=== PATIENT | male | born 1970 | race Caucasian/White ===

== ENCOUNTER 2018-08-18 15:49 | Emergency (ER) | payer OTHER ==
[2018-08-18 16:22] VITALS: BP 145/92; PULSE 89; TEMP 98.4; BMI 18.8
[2018-08-18] MEDS ORDERED: DIPHTH,PERTUSS(ACELL),TET 0.5 ML DISP.SYRIN IM ONE ×2 (16:56→17:19)
--- NOTE | 2018-08-18 16:57 | PDOC ---
History of Present Illness - General Chief Complaint: Injury Stated Complaint: JOB INJURY Time Seen by Provider: 08/18/18 16:20 History Source: Patient Exam Limitations: No Limitations Past History - Travel Traveled outside of the country in the last 30 days: No Close contact w/someone who was outside of country & ill: No - Past Medical History Allergies/Adverse Reactions: Allergies Allergy/AdvReac Type Severity Reaction Status Date / Time No Known Allergies Allergy Verified 08/18/18 17:18 Home Medications: Ambulatory Orders Amox-Tr/K Cl [Augmentin - 875Mg Tablet] 1 tab PO BID #20 tablet 08/18/18 Chlorhexidine [Chlorhexidine Flavor] 15 ml MC BID #1 bottle 08/18/18 Ibuprofen 600 mg PO Q6H #30 tablet 08/18/18 COPD: No - Surgical History Cholecystectomy: No - Immunization History Immunization Up to Date: No - Suicide/Smoking/Psychosocial Hx Smoking History: Current every day smoker Have you smoked in the past 12 months: Yes Information on smoking cessation initiated: No Hx Alcohol Use: No Drug/Substance Use Hx: No Review of Systems - Review of Systems Able to Perform ROS?: Yes Comments:: 08/18/18 23:43 CONSTITUTIONAL: Absent: fever, chills, diaphoresis, generalized weakness, malaise, loss of appetite HEENT: Absent: rhinorrhea, nasal congestion, throat pain, throat swelling, difficulty swallowing, mouth swelling, ear pain, eye pain, visual Changes CARDIOVASCULAR: Absent: chest pain, loss of consciousness, palpitations, irregular heart rate, peripheral edema RESPIRATORY: Absent: cough, shortness of breath, dyspnea with exertion, orthopnea, wheezing, stridor, hemoptysis MUSCULOSKELETAL: Present: jaw pain Absent: myalgia, arthralgia, joint swelling SKIN: Present: cut to tongue Absent: rash, itching, pallor NEUROLOGIC: Absent: headache, focal weakness or paresthesias, dizziness, unsteady gait, seizure, mental status changes, bladder or bowel incontinence Is the patient limited Tongan proficient: No *Physical Exam - Vital Signs Last Vital Signs Temp Pulse Resp BP Pulse Ox 98.4 F 89 18 145/92 98 08/18/18 16:19 08/18/18 16:19 08/18/18 16:19 08/18/18 16:19 08/18/18 16:19 - Physical Exam Comments: 08/18/18 23:44 GENERAL: Well developed, well nourished. Awake and alert. No acute distress. HEENT: Normocephalic, atraumatic. PERRLA, EOMI. No conjunctival pallor. Sclera are non- icteric. Moist mucous membranes. Oropharynx is clear. Front R tooth is cracked. NECK: Supple. Full ROM. No JVD. Carotid pulses 2+ and symmetric, without bruits. No thyromegaly. No lymphadenopathy. MUSCULOSKELETAL TTP of the R mandilble. Normal range of motion at all joints. No bony deformities or tenderness. No CVA tenderness. EXTREMITIES: No cyanosis. No clubbing. No edema. No calf tenderness. SKIN: 1.5cm lineral laceration to the top of the tongue with through and through laceration to the R lateral tongue measuring approcimately 1cm. Bleeding controlled. Warm and dry. Normal capillary refill. No rashes. No jaundice. NEUROLOGICAL: Alert, awake, appropriate. Cranial nerves 2-12 intact. No deficits to light touch and temperature in face, upper extremities and lower extremities. No motor deficits in the in face, upper extremities and lower extremities. Normoreflexic in the upper and lower extremities. Normal speech. Toes are down- going bilaterally. Gait is normal without ataxia. PSYCHIATRIC: Cooperative. Good eye contact. Appropriate mood and affect. Medical Decision Making - Medical Decision Making 08/18/18 23:47 The patient is a 47-year-old male no past medical history who presents to the ER for evaluation of facial pain and a tongue laceration status post work injury. Patient works for [employer]. He states he was changing a tire when 1 of the pieces of equipment sprang up and hit him in the chin. He states he has pain to the right side of his jaw. He also states that he has cuts to his tongue. Denies loss of consciousness, dizziness and lightheadedness. A/P: Jaw pain, laceration to tongue. On exam patient with a through and through laceration to the top of his tongue to the right lateral portion of the tongue both cuts measuring greater than a centimeter. Verbal consent obtained to repair tongue lacerations. 5 mL's of lidocaine were injected into the tongue at the site of the lacerations. Lacerations were thoroughly rinsed out with normal saline under high pressure, approximately 50 ML's. One subcutaneous stitch placed into the right lateral tongue 2 subcutaneous stitches placed into the top of the tongue. Wounds were approximated, not closed completely. Tetanus updated. Patient placed on Augmentin and given antibiotic mouthwash. Patient to return in 2 days for wound check. Refer to dentistry to evaluate the cracked front tooth. CT of the jaw obtained. No facial fractures noted. Discharge home I discussed the physical exam findings, ancillary test results and final diagnoses with the patient. I answered all of the patient's questions. The patient was satisfied with the care received and felt comfortable with the discharge plan and treatment plan. The Patient agrees to follow up with the primary care physician/specialist within 24-72 hours. Return precautions were given. *DC/Admit/Observation/Transfer Diagnosis at time of Disposition: Jaw pain Tongue laceration Qualifiers: Encounter type: initial encounter Qualified Code(s): S01.512A - Laceration without foreign body of oral cavity, initial encounter - Discharge Dispostion Disposition: HOME Condition at time of disposition: Stable Decision to Admit order: No - Prescriptions Prescriptions: Amox-Tr/K Cl [Augmentin - 875Mg Tablet] 1 tab PO BID #20 tablet Chlorhexidine [Chlorhexidine Flavor] 15 ml MC BID #1 bottle Ibuprofen 600 mg PO Q6H #30 tablet - Referrals - Patient Instructions Printed Discharge Instructions: DI for Laceration Repair -- Complex Suture Additional Instructions: You had the cuts on your tongue repaired with sutures today They will be absorbed on their own Take the augmentin twice a day for 10 days to prevent infection You may take the ibuprofen every 6 hours as needed for pain Eat soft foods for the next 3-5 days, avoid sharp foods, foods with small parts like seeds. Make sure the food is not too hot or too cold Gargle with salt water every time after you eat so the food does not get stuck in the cut Come back to the emergency department in two days to have the wound checked Follow up with dentistry tomorrow regarding the cracked tooth Return to the ED sooner for worsening pain, fever, swelling to the face or tongue or if you have any changes in your symptoms - Post Discharge Activity Forms/Work/School Notes: Back to Work
== END 2018-08-18 18:42 | disposition home or self-care (01) ==
LOC: JERFT 15:49
PROC: 3E0234Z Introduction of Serum, Toxoid and Vaccine into Muscle, Percutaneous Approach (ICD-10-PCS; principal; 2018-08-18)
PROC: 0CQ73ZZ Repair Tongue, Percutaneous Approach (ICD-10-PCS; 2018-08-18)
DX: S01.512A Laceration without foreign body of oral cavity, initial encounter (principal); R68.84 Jaw pain; W20.8XXA Other cause of strike by thrown, projected or falling object, initial encounter; Y93.89 Activity, other specified; Y92.69 Other specified industrial and construction area as the place of occurrence of the external cause; Y99.0 Civilian activity done for income or pay
CPT/HCPCS: 70486-TC; 90715; 99281-25